=== PATIENT | female | born 1990 | race Caucasian/White ===

== ENCOUNTER 2018-12-09 19:10 | Emergency (ER) | payer OTHER ==
[2018-12-09] MEDS ORDERED: Lactated Ringers 1,000 ML IV ONE (19:27)
[2018-12-09] MEDS ORDERED: Ondansetron 4 MG/2 ML SDV IVPUSH ONE (19:28)
--- NOTE | 2018-12-09 19:49 | EDM.PDOC ---
ED HPI GENERAL MEDICAL PROBLEM - General Chief Complaint: Abdominal Pain Stated Complaint: GI ISSUES Time Seen by Provider: 12/09/18 19:11 Source of Information: Reports: Patient History Limitations: Reports: No Limitations - History of Present Illness INITIAL COMMENTS - FREE TEXT/NARRATIVE: Evette is a 28-year-old nullipara with one adopted child woman nonsmoker does not use street drugs marijuana alcohol or smoke. No history of abdominal surgery. LMP 2 weeks ago patient is on Lorena and uses a placebo at the end of each cycle. She denies weight loss or unusual symptoms. Last night she had a frozen supper. This was not greasy. She and her had diarrhea. She had diarrhea 3 times today and she has vomited 4-5 times. She states the abdominal pain comes in waves; at its peak as 5/10, now her pain is 3/10. She has associated myalgia. No history of weakness, marijuana use, (hyperemesis cannabis syndrome) travel, exposure to unusual foods, and no unusual well water exposure. 2 weeks ago she was started on Wellbutrin for depression. Wellbutrin is beginning to help her depression. Abdomen Pain Score (Numeric/FACES): 3 - Related Data Allergies Allergy/AdvReac Type Severity Reaction Status Date / Time fexofenadine [From Alana] Allergy Headache Verified 12/09/18 19:22 Home Meds: Home Meds Cetirizine [ZyrTEC] 10 mg PO BEDTIME 12/09/18 [History] Escitalopram [Lexapro] 20 mg PO BEDTIME 12/09/18 [History] Multivit, Ca, Min/FA/Soy Isofl [One-A-Day Menopause Formula Tb] 1 tab BEDTIME [History] buPROPion HCl [Wellbutrin SR] 150 mg PO BID 12/09/18 [History] metFORMIN HCl [Metformin ER Osmotic] 1,000 mg BEDTIME 12/09/18 [History] Past Medical History [employer]IST History: Reports: Neurological History: Reports: Migraines Psychiatric History: Reports: Anxiety, Depression Endocrine/Metabolic History: Reports: Obesity/BMI 30+ Social & Family History - Family History Family Medical History: Noncontributory - Caffeine Use Caffeine Use: Reports: None ED ROS GENERAL - Review of Systems Review Of Systems: See Below Constitutional: Reports: No Symptoms HEENT: Reports: No Symptoms, Other Respiratory: Reports: No Symptoms Cardiovascular: Reports: No Symptoms Endocrine: Reports: No Symptoms GI/Abdominal: Reports: Diarrhea, Vomiting, Other (Vomiting and diarrhea onset today with associated abdominal pain that generalized. She vomited so hard today that she feels like his entire back is sore.) : Reports: No Symptoms Musculoskeletal: Reports: Muscle Pain Skin: Reports: No Symptoms Neurological: Reports: No Symptoms Psychiatric: Reports: Depression Hematologic/Lymphatic: Reports: No Symptoms Immunologic: Reports: No Symptoms ED EXAM, GI/ABD - Physical Exam Exam: See Below Text/Narrative:: Alert muscle well-nourished woman in moderate distress and is somewhat reluctant to lie down because of her abdominal pain but is very cooperative Exam Limited By: No Limitations General Appearance: Alert, Moderate Distress Eyes: Bilateral: Normal Appearance Ears: Normal External Exam, Normal Canal, Hearing Grossly Normal, Normal TMs Nose: Normal Inspection Throat/Mouth: Normal Inspection, Normal Lips, Normal Teeth, Normal Gums, Normal Oropharynx, Normal Voice Head: Atraumatic, Normocephalic Neck: Normal Inspection, Supple, Non-Tender, Full Range of Motion Respiratory/Chest: No Respiratory Distress, Lungs Clear, Normal Breath Sounds, No Accessory Muscle Use, Chest Non-Tender Cardiovascular: Normal Peripheral Pulses, Regular Rate, Rhythm, No Edema, No Gallop, No JVD, No Murmur GI/Abdominal Exam: Normal Bowel Sounds, Soft, Guarding, Other (Mild tenderness mild heeltap rebound mild guarding) (Female) Exam: Deferred Rectal (Female) Exam: Normal Exam, Normal Rectal Tone Back Exam: Normal Inspection, Full Range of Motion Extremities: Normal Inspection, Normal Range of Motion, Non-Tender, No Pedal Edema, Normal Capillary Refill Neurological: Alert, Oriented, CN II-XII Intact, Normal Cognition, Normal Reflexes, No Motor/Sensory Deficits Psychiatric: Normal Affect, Normal Mood Skin Exam: Warm, Dry, Intact, Normal Color, No Rash Lymphatic: No Adenopathy Course - Vital Signs Last Recorded V/S: Last Vital Signs Temp 36.4 C 12/09/18 19:14 Pulse 91 12/09/18 19:14 Resp 18 12/09/18 19:14 BP 140/92 H 12/09/18 19:14 Pulse Ox 100 12/09/18 19:14 - Orders/Labs/Meds Orders: Active Orders 24 hr Category Date Time Status CULTURE STREP A CONFIRMATION [RM] Urgent Lab 12/09/18 19:40 Results HCG QUALITATIVE,URINE [URCHEM] Urgent Lab 12/09/18 19:28 Ordered STREP SCRN A RAPID W CULT CONF [RM] Urgent Lab 12/09/18 19:40 Results UA W/MICROSCOPIC [URIN] Urgent Lab 12/09/18 19:28 Ordered Sodium Chloride 0.9% [Saline Flush] Med 12/09/18 19:52 Active 10 ml FLUSH ASDIRECTED PRN Medication Orders Sodium Chloride (Saline Flush) 10 ml FLUSH ASDIRECTED PRN PRN Reason: Keep Vein Open Labs: Laboratory Tests 12/09/18 12/09/18 12/09/18 Range/Units 19:40 19:40 19:40 WBC 12.1 H (4.5-12.0) X10-3/uL RBC 5.11 (3.23-5.20) x10(6)uL Hgb 15.1 (11.5-15.5) g/dL Hct 44.4 (30.0-51.3) % MCV 86.9 (80-96) fL MCH 29.5 (27.7-33.6) pg MCHC 33.9 (32.2-35.4) g/dL RDW 12.8 (11.5-15.5) % Plt Count 292 (125-369) X10(3)uL MPV 8.3 (7.4-10.4) fL Add Manual Diff Yes Neutrophils % (Manual) 92 H (46-82) % Band Neutrophils % 4 (0-6) % Lymphocytes % (Manual) 3 L (13-37) % Monocytes % (Manual) 1 L (4-12) % Sodium 139 (135-145) mmol/L Potassium 4.4 (3.5-5.3) mmol/L Chloride 101 (100-110) mmol/L Carbon Dioxide 21 (21-32) mmol/L BUN 19 H D (7-18) mg/dL Creatinine 0.9 (0.55-1.02) mg/dL Est Cr Clr Drug Dosing 76.98 mL/min Estimated GFR (MDRD) > 60 (>60) BUN/Creatinine Ratio 21.1 H (9-20) Glucose 121 H (80-116) mg/dL Lactic Acid 1.9 (0.4-2.2) mmol/L Calcium 9.2 (8.6-10.2) mg/dL Total Bilirubin 0.3 (0.1-1.3) mg/dL AST 22 (5-25) IU/L ALT 16 (12-36) U/L Alkaline Phosphatase 101 (56-112) IU/L Total Protein 7.9 (6.0-8.0) g/dL Albumin 3.3 L (3.5-5.2) g/dL Globulin 4.6 g/dL Albumin/Globulin Ratio 0.7 Amylase (25-115) U/L 12/09/18 Range/Units 19:40 WBC (4.5-12.0) X10-3/uL RBC (3.23-5.20) x10(6)uL Hgb (11.5-15.5) g/dL Hct (30.0-51.3) % MCV (80-96) fL MCH (27.7-33.6) pg MCHC (32.2-35.4) g/dL RDW (11.5-15.5) % Plt Count (125-369) X10(3)uL MPV (7.4-10.4) fL Add Manual Diff Neutrophils % (Manual) (46-82) % Band Neutrophils % (0-6) % Lymphocytes % (Manual) (13-37) % Monocytes % (Manual) (4-12) % Sodium (135-145) mmol/L Potassium (3.5-5.3) mmol/L Chloride (100-110) mmol/L Carbon Dioxide (21-32) mmol/L BUN (7-18) mg/dL Creatinine (0.55-1.02) mg/dL Est Cr Clr Drug Dosing mL/min Estimated GFR (MDRD) (>60) BUN/Creatinine Ratio (9-20) Glucose (80-116) mg/dL Lactic Acid (0.4-2.2) mmol/L Calcium (8.6-10.2) mg/dL Total Bilirubin (0.1-1.3) mg/dL AST (5-25) IU/L ALT (12-36) U/L Alkaline Phosphatase (56-112) IU/L Total Protein (6.0-8.0) g/dL Albumin (3.5-5.2) g/dL Globulin g/dL Albumin/Globulin Ratio Amylase 51 (25-115) U/L Meds: Medications Generic Name Dose Route Start Last Admin Trade Name Wilfrido PRN Reason Stop Dose Admin Sodium Chloride 10 ml 12/09/18 19:52 Saline Flush FLUSH ASDIRECTED PRN Keep Vein Open Discontinued Medications Generic Name Dose Route Start Last Admin Trade Name Wilfrido PRN Reason Stop Dose Admin Lactated Ringer's 1,000 mls @ 999 mls/hr 12/09/18 19:27 12/09/18 19:42 Ringers, Lactated IV 12/09/18 20:27 999 mls/hr BOLUS ONE Administration Ondansetron HCl 4 mg 12/09/18 19:28 12/09/18 19:42 Zofran IVPUSH 12/09/18 19:29 4 mg ONETIME ONE Administration - Re-Assessments/Exams Free Text/Narrative Re-Assessment/Exam: 12/09/18 19:54 Patient received 1000 L Ringer's Free Text/Narrative Re-Assessment/Exam: 12/09/18 20:40 Recheck at 2030 much improved patient's pain has gone from 3-2/10 she feels much better Recheck now 20:52 pain is 1-t2/10 she's feeling that when she gets her IVs and she can go home. No further vomiting. Abdominal exam still has mild epigastric abdominal discomfort but much less then earlier in the day and on arrival. Departure - Departure Time of Disposition: 20:10 (Nausea and vomiting related to gastroenteritis. Influenza strep test negative. Moderate dehydration received 2000 ML lactated Ringer's. Before dismissal pain when2/10 markedly improved. Subjectively she feels much better.) Disposition: Home, Self-Care 01 Condition: Good Clinical Impression: Dehydration, Gastroenteritis, Oral contraceptive use Depression Qualifiers: Depression Type: unspecified Qualified Code(s): F32.9 - Major depressive disorder, single episode, unspecified Vomiting Qualifiers: Vomiting type: unspecified Vomiting Intractability: non-intractable Nausea presence: with nausea Qualified Code(s): R11.2 - Nausea with vomiting, unspecified Diarrhea Qualifiers: Diarrhea type: presumed infectious Qualified Code(s): R19.7 - Diarrhea, unspecified - Discharge Information *PRESCRIPTION DRUG MONITORING PROGRAM REVIEWED*: Not Applicable *COPY OF PRESCRIPTION DRUG MONITORING REPORT IN PATIENT NICOLE: Not Applicable Referrals: Kenzie Nicole, [employer] [Primary Care Provider] - Forms: ED Department Discharge Additional Instructions: Diagnosis gastroenteritis with dehydration. Gradually increase her diet as tolerated. No evidence for or significant blood abnormality. Zofran for nausea 2 tablets dispensed. Fill prescriptions tomorrow as needed. Gradually increase her diet as tolerated. Start with clear liquids advanced general liquids and soups broths, Jell-O etc Follow-up with her doctor and/or the ED in 24 hours -72 hours, if markedly worse , earlier. Use Pedialyte for rehydration. - My Orders Last 24 Hours: My Active Orders 12/09/18 19:28 HCG QUALITATIVE,URINE [URCHEM] Urgent UA W/MICROSCOPIC [URIN] Urgent 12/09/18 19:40 CULTURE STREP A CONFIRMATION [RM] Urgent STREP SCRN A RAPID W CULT CONF [RM] Urgent 12/09/18 19:52 Sodium Chloride 0.9% [Saline Flush] 10 ml FLUSH ASDIRECTED PRN - Assessment/Plan Last 24 Hours: My Active Orders 12/09/18 19:28 HCG QUALITATIVE,URINE [URCHEM] Urgent UA W/MICROSCOPIC [URIN] Urgent 12/09/18 19:40 CULTURE STREP A CONFIRMATION [RM] Urgent STREP SCRN A RAPID W CULT CONF [RM] Urgent 12/09/18 19:52 Sodium Chloride 0.9% [Saline Flush] 10 ml FLUSH ASDIRECTED PRN
[2018-12-09] MEDS ORDERED: Sodium Chloride 0.9% 10 ML Syringe FLUSH PRN (19:52)
[2018-12-09] MEDS ORDERED: Sodium Chloride 0.9% 1,000 ML IV ONE (21:02)
[2018-12-09] MEDS ORDERED: Ondansetron 4 MG Tab.DIS PO ONE (21:53)
== END 2018-12-09 22:20 | disposition home or self-care (01) ==
LOC: FB.ED 19:10
DX: K52.9 Noninfective gastroenteritis and colitis, unspecified (principal); E86.0 Dehydration; F32.9 Major depressive disorder, single episode, unspecified; E66.9 Obesity, unspecified; Z79.3 Long term (current) use of hormonal contraceptives; Z79.84 Long term (current) use of oral hypoglycemic drugs; Z88.8 Allergy status to other drugs, medicaments and biological substances
CPT/HCPCS: 36415; 80053; 81001; 81025; 82150; 83605; 85025; 87081; 87804 ×2; 87880; 96361; 96374; 99284; A9270; J2405; J7030; J7120